=== PATIENT | female | born 2000 | race Caucasian/White ===

== ENCOUNTER → 2021-09-16 | Outpatient (CLI) | payer BC ==
--- NOTE | 2021-09-16 12:21 | Diagnostic Imaging Report ---
INDICATION: Dislocation of the knee. COMPARISON: None available TECHNIQUE: 6 radiographs of bilateral knees dated 09/16/2021 FINDINGS: No acute fracture or dislocation. No destructive osseous process. Joint spaces are well-maintained. No significant osteophytosis. No knee joint effusion. No suspicious radiopaque foreign body. IMPRESSION: Unremarkable examination without acute osseous abnormality. Dictated by: Dictated on workstation # [id number]
== END ==
LOC: RAD 10:06
PROVIDERS: ATTEND Family Medicine
DX: S83.104A Unspecified dislocation of right knee, initial encounter (principal); S83.105A Unspecified dislocation of left knee, initial encounter